=== PATIENT | female | born 1965 | race Caucasian/White ===

== ENCOUNTER 2018-05-19 13:27 | Emergency (ER) | payer OTHER ==
[~2018-05-19] VITALS: Ht 175.3 cm; Wt 70.3 kg
[2018-05-19] MEDS ORDERED: HYDROCODONE/APAP 10MG-325MG TAB PO ONE (14:00)
--- NOTE | 2018-05-19 15:19 | Diagnostic Imaging Report ---
Radiographs of the right foot - 3 views HISTORY: Pain COMPARISON: None available. FINDINGS: Bones: No acute displaced fracture. Osseous alignment is within normal limits. Joints: Mild scattered degenerative change. No osseous erosion. Soft tissues: The soft tissues appear unremarkable. IMPRESSION: Mild scattered degenerative change. No osseous erosion. Signed by: Dr. Urban Armstrong M.D. on 05/19/2018 3:16 PM
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
== END 2018-05-19 16:48 | disposition home or self-care (01) ==
LOC: ER 13:27
DX: S90.31XA Contusion of right foot, initial encounter (principal); V43.52XA Car driver injured in collision with other type car in traffic accident, initial encounter; Y92.488 Other paved roadways as the place of occurrence of the external cause
CPT/HCPCS: 71045; 93005; 99284